=== PATIENT | male | born 1950 | race Caucasian/White ===

== ENCOUNTER → 2022-11-07 13:24 | Outpatient (BNVA) | payer OTHER, SELFPAY | PROVIDERS: Family Provider Internal Medicine; PCP Internal Medicine; Visit Provider Nurse Practitioner Family | DX: L85.3 Xerosis cutis (principal); D22.5 Melanocytic nevi of trunk; L81.4 Other melanin hyperpigmentation; L57.8 Other skin changes due to chronic exposure to nonionizing radiation; L82.1 Other seborrheic keratosis; L82.0 Inflamed seborrheic keratosis; L57.0 Actinic keratosis; B07.0 Plantar wart | CPT/HCPCS: 17000; 17003; 17110; 99213 ==

== ENCOUNTER → 2022-12-10 11:44 | Outpatient (BNVA) | payer OTHER, SELFPAY | PROVIDERS: Family Provider Internal Medicine; PCP Internal Medicine; Visit Provider Nurse Practitioner Family | DX: L85.3 Xerosis cutis (principal); D22.5 Melanocytic nevi of trunk; L81.4 Other melanin hyperpigmentation; L57.8 Other skin changes due to chronic exposure to nonionizing radiation; L82.1 Other seborrheic keratosis; B07.0 Plantar wart; Z71.89 Other specified counseling; L57.0 Actinic keratosis | CPT/HCPCS: 17000; 17003; 17110; 99213 ==

== ENCOUNTER → 2023-03-20 14:06 | Outpatient (BNVA) | payer OTHER, SELFPAY | PROVIDERS: Family Provider Internal Medicine; PCP Internal Medicine; Visit Provider Nurse Practitioner Family | DX: L57.0 Actinic keratosis (principal); L81.4 Other melanin hyperpigmentation; L57.8 Other skin changes due to chronic exposure to nonionizing radiation; D22.39 Melanocytic nevi of other parts of face; L82.1 Other seborrheic keratosis | CPT/HCPCS: 17000; 17003; 99213 ==

== ENCOUNTER → 2023-08-07 14:31 | Outpatient (BNVA) | payer OTHER, SELFPAY | PROVIDERS: Family Provider Internal Medicine; PCP Internal Medicine; Visit Provider Nurse Practitioner Family | DX: L57.0 Actinic keratosis (principal); L81.4 Other melanin hyperpigmentation; L57.8 Other skin changes due to chronic exposure to nonionizing radiation; D22.39 Melanocytic nevi of other parts of face; L82.1 Other seborrheic keratosis | CPT/HCPCS: 17000; 99213 ==

== ENCOUNTER 2023-08-25 06:00 | Outpatient (RCR) | payer OTHER, SELFPAY | END 2023-09-11 23:59 | disposition home or self-care (01) | LOC: APT 06:00 | PROVIDERS: Visit Provider Family Medicine | DX: M54.50 Low back pain, unspecified (principal) | CPT/HCPCS: 97112; 97161; 97530 ==

== ENCOUNTER 2023-09-12 06:00 | Outpatient (RCR) | payer OTHER, SELFPAY | END 2023-10-12 23:59 | disposition home or self-care (01) | LOC: APT 06:00 | PROVIDERS: Visit Provider Family Medicine | DX: M54.50 Low back pain, unspecified (principal) | CPT/HCPCS: 97110; 97112; 97116; 97530 ==

== ENCOUNTER 2023-11-20 13:27 | Outpatient (CLI) | payer OTHER, SELFPAY ==
--- NOTE | 2023-11-20 13:35 | MR_ITS ---
WS: [id number] MRI LUMBAR SPINE NONCONTRAST TECHNIQUE: Sagittal T1, T2 and STIR imaging. Axial T1 and T2 imaging. CLINICAL INFORMATION: COMPARISON: Low back pain FINDINGS: Mild lumbar curve. No acute compression. Moderate spondylitic changes. S1 is partially lumbarized wit h rudimentary disc base. Mild central canal stenosis cervical spine on the journeyman press operator imaging. L1-L2: Mild annular bulging. Mild RIGHT foraminal narrowing. Spinal canal is patent. Mild facet arthr opathy. L2-L3: Mild annular bulging. Mild central canal stenosis. Slight narrowing of the subarticular recess bilaterally. Moderate RIGHT foraminal narrowing with a RIGHT foraminal protrusion. Moderate facet ar thropathy. L3-L4: Mild annular bulging. Impingement LEFT subarticular recess. Moderate facet arthropathy. LEFT f oraminal protrusion slightly encroaches on the far exiting LEFT L3 nerve root. L4-L5: Mild disc bulge with osteophytic ridging. Moderate central canal stenosis. Moderate facet arth ropathy. Moderate LEFT foraminal narrowing. RIGHT foramen is patent. L5-S1: Mild disc bulge with mild central canal stenosis. Slight impingement of traversing S1 nerve ro ots. Moderate facet arthropathy. Mild bilateral foraminal narrowing. Visualized pelvic bony structures: Normal. Paravertebral soft tissues: Normal. MR/MR lumbar spine wo con* [id number] IMPRESSION: 1. Mild lumbar curve. No acute compression. S1 is partially lumbarized. Recomm end plain film correlation prior to surgical intervention. 2. Moderate central canal stenosis L4-5 due to disc bulging with facet arthrop athy and ligamentum flavum hypertrophy. Impingement subarticular recess bilater ally. 3. Mild central canal stenosis L2-3 and L5-S1. 4. RIGHT foraminal protrusion L2-3 with moderate RIGHT foraminal narrowing and impingement on the exiting RIGHT L2 nerve root. 5. Moderate LEFT L4-5 foraminal narrowing impinges the exiting L4 nerve root. 6. Mild bilateral L5-S1 foraminal narrowing.
--- NOTE | 2023-11-20 13:35 | XR_ITS ---
WS: [id number] DEXA (DUAL ENERGY X-RAY ABSORPTIOMETRY) Bone mineral density was performed using a Viewglass machine. HISTORY: COMPRESSION FX LUMBAR/? OSTEOPOROSIS COMPARISON: None available. Lumbar spine BMD (L1-L4): 1.443 T score: 1.7 Z score: 2.4 Total hip BMD: Left: 0.859 g/cm2. T score: -1.7 Z score: -0.8 Right: 0.850 g/cm2. T score: -1.7 Z score: -0.9 10 year probability of a major osteoporotic fracture is 16%. XR/XR DEXA axial skeleton* [id number] IMPRESSION: OSTEOPOROSIS.
== END 2023-11-20 13:28 | disposition home or self-care (01) ==
LOC: RAD 13:27
PROVIDERS: Visit Provider Family Medicine
DX: Z13.820 Encounter for screening for osteoporosis (principal); M48.061 Spinal stenosis, lumbar region without neurogenic claudication; M48.07 Spinal stenosis, lumbosacral region
CPT/HCPCS: 72148; 77080

== ENCOUNTER → 2024-08-03 11:38 | Outpatient (BNVA) | payer OTHER, SELFPAY | PROVIDERS: PCP Family Medicine; Referring Provider Family Medicine; Visit Provider Surgery | DX: Z12.11 Encounter for screening for malignant neoplasm of colon (principal) | CPT/HCPCS: 99204 ==

== ENCOUNTER 2024-08-05 07:45 | Day surgery (SDC) | payer OTHER, SELFPAY ==
[2024-08-05 08:02] VITALS: BMI 22.4
--- NOTE | 2024-08-05 08:06 | W.PM.OPSUD ---
Surgery/Procedure H&P Update DATE OF PROCEDURE: August 05, 2024 DATE H&P PERFORMED: 08/03/24 H&P UPDATE INFORMATION: I have reviewed H&P completed within last 30 days, I have examined patient prior to procedure, No changes to prior documentation and H&P is in [facility] on date indicated PLANNED PROCEDURE: Operation Date: 08/05/24 09:00 Proposed Procedures p Colonoscopy 29738, Z12.11(Not Applicable) - Alvaro Valenzuela MD
[2024-08-05 08:12] VITALS: BP 164/77; PULSE 61; RESP 18; TEMP 36.5; O2SAT 97
--- NOTE | 2024-08-05 08:12 | ANES.PREANE2 ---
Pre-Anesthetic Assessment Height/Weight: Height 1.83 m Weight 74.843 kg Preop Diagnosis: screening Operation Date: 08/05/24 09:00 Proposed Procedures p Colonoscopy [id number], Z12.11(Not Applicable) - Alvaro Valenzuela MD Familial anesthetic complications: none Last intake: Intake Last Liquid Date 08/04/24 Last Liquid Time 20:00 Last Solid Date 08/03/24 Last Solid Time 17:00 Social Alcohol (daily 4-5 beers per day) and Tobacco cannabis use. Airway Submandibular: within normal limits Cervical ROM: within normal limits Mallampati: Class II Dentition: other Comments: Comments: poor dentition on upper teeth chipped and discolored, lower denture plate in place. Pulmonary Chronic Obstructive Pulmonary Disease (denies) CV/HEM Hypertension None reported Hepatic None reported GI Gastroesophageal Reflux Disease Metabolic Hyperlipidemia [facility] None reported Neuropsych None reported Anesthetic Plan ASA status: 3 Anesthesia: MAC Medications/Allergies Home Medications Medication Instructions Recorded Confirmed Last Taken Type amlodipine 10 mg tablet 10 mg PO DAILY 05/20/22 08/04/24 08/04/24 06:00 History pantoprazole 40 mg tablet,delayed 40 mg PO DAILY 05/20/22 08/04/24 08/04/24 History release aspirin 81 mg tablet,delayed 81 mg PO DAILY 08/04/24 08/04/24 08/04/24 History release losartan 100 mg tablet 100 mg PO DAILY 08/04/24 08/04/24 08/04/24 History multivitamin 1 tab PO DAILY 08/04/24 08/04/24 08/04/24 History omega-3 fatty acids-vitamin E 1 cap PO DAILY 08/04/24 08/04/24 08/04/24 History 1,000 mg capsule red yeast rice 600 mg capsule 1,200 mg PO DAILY 08/04/24 08/04/24 08/04/24 History vitamin E (dl, acetate) 180 mg 180 mg PO DAILY 08/04/24 08/04/24 08/04/24 History (400 unit) capsule Allergies Allergy/AdvReac Type Severity Reaction Status Date / Time No Known Drug Allergies Allergy Unknown Unknown Verified 08/05/24 07:56 [facility] Anesthesia Medical History No pertinent past medical history Surgical History (Updated 08/03/24 @ 12:08 by CURRY Mao) No pertinent past surgical history Social History Smoking and tobacco/nicotine status: never used tobacco/nicotine Data Anesthesia Cardiac Studies: No Data to Display
[2024-08-05] MEDS: sodium chloride 0.9% 500 ML 15 ML IV (08:13)
[2024-08-05 09:11] VITALS: BP 103/66; PULSE 62; RESP 16; TEMP 36.1; O2SAT 94
[2024-08-05 09:31] VITALS: BP 134/71; PULSE 56; RESP 18; O2SAT 95
--- NOTE | 2024-08-05 09:45 | ANE.PACU2 ---
Inpatient post-anesthesia follow up: Airway intact: Yes Vital signs: Temperature 97 F Pulse Rate 56 Respiratory Rate 18 Blood Pressure 134/71 Pulse Oximetry 95 Oxygen Delivery Me thod Room Air Oxygen Flow Rate 4 Fraction of Inspir ed Oxygen Hydration adequate: Yes Nausea and vomiting: No Pain level: 1 Mental status: Baseline
== END 2024-08-05 09:45 | disposition home or self-care (01) ==
PROVIDERS: PCP Family Medicine; Visit Provider Surgery
PROC: 0DJD8ZZ Inspection of Lower Intestinal Tract, Via Natural or Artificial Opening Endoscopic (ICD-10-PCS; CPT 45378; principal; 2024-08-05 09:00)
DX: Z12.11 Encounter for screening for malignant neoplasm of colon (principal); D12.0 Benign neoplasm of cecum; D12.5 Benign neoplasm of sigmoid colon; D12.3 Benign neoplasm of transverse colon; D12.8 Benign neoplasm of rectum; J44.9 Chronic obstructive pulmonary disease, unspecified; E78.5 Hyperlipidemia, unspecified; K21.9 Gastro-esophageal reflux disease without esophagitis
CPT/HCPCS: 45382; 45385; 88305; J2704; J7040

== ENCOUNTER → 2024-08-17 09:54 | Outpatient (BNVA) | payer OTHER, SELFPAY | PROVIDERS: PCP Family Medicine; Visit Provider Surgery | DX: Z09 Encounter for follow-up examination after completed treatment for conditions other than malignant neoplasm (principal) | CPT/HCPCS: 99213 ==

== ENCOUNTER → 2024-09-06 10:58 | Outpatient (BNVA) | payer OTHER, SELFPAY | PROVIDERS: PCP Family Medicine; Visit Provider Orthopaedic Surgery | DX: S46.211A Strain of muscle, fascia and tendon of other parts of biceps, right arm, initial encounter (principal); X58.XXXA Exposure to other specified factors, initial encounter | CPT/HCPCS: 73030; 99204 ==

== ENCOUNTER 2024-09-14 14:23 | Outpatient (CLI) | payer OTHER, SELFPAY ==
--- NOTE | 2024-09-14 14:30 | MR_ITS ---
WS: [id number] MRI RIGHT SHOULDER NONCONTRAST TECHNIQUE: Sagittal T2, coronal T1, T2 and proton density imaging. Axial gradient PDE imaging. CLINICAL INFORMATION: Attention Bicep! COMPARISON: None. FINDINGS: Advanced arthritis AC joint. Osteopenia. Screw fixation in the distal clavicle. Advanced degenerative narrowing of the glenohumeral articulation. Osteopenia. Mild narrowing of the subacromial space with slight subacromial spurring. Impingement on the distal supraspinatus. Tiny insertional tear supraspinatus. Tendinopathy supraspinatus and infraspinatus. Supraspinatus and infraspinatus appear intact. Teres minor appears intact. Subscapularis appears intact. Biceps tendon is completely absent from the bicipital groove. No visualized remnant. Degenerative fraying of the glenoid labrum. Probable chronic tear of the posterior glenoid labrum. Subchondral cystic change involving the greater tuberosity. MR/MR shoulder RT wo con* [id number] IMPRESSION: 1. Advanced arthritis AC joint with prior screw fixation distal clavicle. 2. Mild narrowing of the subacromial space with tendinopathy supraspinatus and infraspinatus. Tiny insertional tear distal supraspinatus. 3. Rotator cuff is otherwise intact. 4. Biceps tendon completely absent from the bicipital groove. Suggestion of a tiny remnant intra-articular biceps tendon although not well visualized 5. Chronic irregularity of the glenoid labrum with suspected chronic posterior labral tear
== END 2024-09-14 14:24 | disposition home or self-care (01) ==
PROVIDERS: PCP Family Medicine; Visit Provider Orthopaedic Surgery
DX: S46.121A Laceration of muscle, fascia and tendon of long head of biceps, right arm, initial encounter (principal); M13.811 Other specified arthritis, right shoulder; Z98.890 Other specified postprocedural states; X58.XXXA Exposure to other specified factors, initial encounter; R93.6 Abnormal findings on diagnostic imaging of limbs; M85.80 Other specified disorders of bone density and structure, unspecified site; M77.8 Other enthesopathies, not elsewhere classified; M75.41 Impingement syndrome of right shoulder
CPT/HCPCS: 73221

== ENCOUNTER → 2024-09-23 10:45 | Outpatient (BNVA) | payer OTHER, SELFPAY | PROVIDERS: PCP Family Medicine; Visit Provider Orthopaedic Surgery | DX: Z01.818 Encounter for other preprocedural examination (principal); Z09 Encounter for follow-up examination after completed treatment for conditions other than malignant neoplasm; M25.511 Pain in right shoulder; G89.29 Other chronic pain; M19.011 Primary osteoarthritis, right shoulder; S46.211A Strain of muscle, fascia and tendon of other parts of biceps, right arm, initial encounter; X58.XXXA Exposure to other specified factors, initial encounter | CPT/HCPCS: 36415; 80053; 81001; 85025; 99213 ==

== ENCOUNTER 2024-11-09 06:22 | Outpatient (CLI) | payer OTHER, SELFPAY ==
--- NOTE | 2024-11-09 06:33 | USCV_ITS ---
Jairo Ortiz Age: 74 Gender: M : 1950 Exam Date: 11/09/2024 06:39 Ordering Phys: Nadya Polanco MD Technologist: BOBBI Exam Location: [facility] [place] Indication: Murmur BP: 154 / 84 HR: 50 Rhythm: Sinus Technical Quality: Adequate MEASUREMENTS (Male / Female) Normal Values 2D ECHO LV Diastolic Diameter PLAX 4.5 cm 4.2 - 5.9 / 3.9 - 5.3 cm IVS Diastolic Thickness 1.1 cm 0.6 - 1.0 / 0.6 - 0.9 cm IVS Systolic Thickness 1.3 cm LVPW Diastolic Thickness 1.2 cm 0.6 - 1.0 / 0.6 - 0.9 cm LVPW Systolic Thickness 1.7 cm LVOT Diameter 1.8 cm LV Ejection Fraction 2D Teich 57.9 % LV Ejection Fraction MOD 4C 51.1 % LV Ejection Fraction MOD 2C 66.7 % LV Ejection Fraction 2C AL 66.6 % LA Diameter 3.3 cm RA Systolic Volume 4C AL 27.1 ml RA Systolic Volume 4C MOD 27.1 ml LA Sys Volume AL 32.5 cm cubed LA Sys Volume Index AL 16.7 cm cubed/m squared Aorta at Sinotubular Diameter 2.5 cm IVC Diameter 2.0 cm M-MODE LA Ao Ratio MM 1.8 AV Cusp Separation MM 1.4 cm DOPPLER AV Peak Velocity 193.0 cm/s LVOT Peak Velocity 103.0 cm/s AV Area Cont Eq vti 1.6 cm squared AV Area Cont Eq pk 1.3 cm squared MV Peak Velocity 111.0 cm/s MV Area PHT 4.4 cm squared Mitral E to A Ratio 1.3 TR Peak Velocity 114.0 cm/s TR Peak Gradient 5.2 mmHg TV Peak E Velocity 72.0 cm/s PV Peak Velocity 111.0 cm/s FINDINGS Left Ventricle Left ventricle is normal in size. LV systolic function is normal with EF of 55-60%. No regional wall motion abnormalities are seen. Right Ventricle Grossly normal Right Atrium Normal in size Left Atrium Normal in size Mitral Valve Structurally normal mitral valve. Mild mitral regurgitation Aortic Valve Structurally normal aortic valve. No significant stenosis or regurgitation Tricuspid Valve Insufficient TR jet to calculate RVSP Pulmonic Valve Not well visualized Pericardium Normal Aorta Normal in size IVC Appears to be normal CONCLUSIONS LV systolic function is normal with EF of 55-60% Mild mitral regurgitation Fidel Ayon MD (Electronically Signed) Final Date: 16 Nov 2024 12:17 S
== END 2024-11-09 06:23 | disposition home or self-care (01) ==
PROVIDERS: PCP Family Medicine; Visit Provider Family Medicine
DX: R01.1 Cardiac murmur, unspecified (principal); I34.0 Nonrheumatic mitral (valve) insufficiency
CPT/HCPCS: 93306

== ENCOUNTER 2024-11-18 09:08 | Day surgery (SDC) | payer OTHER, SELFPAY ==
[2024-11-18] VITALS (10 sets, daily range): BP systolic 115–150; BP diastolic 62–99; PULSE 50–62; RESP 12–19; TEMP 36.1–36.6; O2SAT 92–97; BMI 22.4
--- NOTE | 2024-11-18 10:58 | ANES.PREANE2 ---
Pre-Anesthetic Assessment Height/Weight: Height 6 ft Weight 165 lb Temp Pulse Resp BP Pulse Ox O2 Del Method 98 F 62 17 147/82 96 Room Air 11/18/24 09:35 11/18/24 09:35 11/18/24 09:35 11/18/24 09:35 11/18/24 09:35 11/18/24 09:40 Preop Diagnosis: Tear of biceps muscle Operation Date: 11/18/24 10:55 Proposed Procedures p Shoulder Arthroscopy(Right) - Kevin Reynaga MD s Distal Bicep Repair/Reinsertion(Right) - Kevin Reynaga MD Was Beta Star taken within 24 hours: N/A Was Clonidine taken within 24 hours: N/A Last intake: Intake Last Liquid Date 11/17/24 Last Liquid Time 21:00 Last Solid Date 11/17/24 Last Solid Time 17:00 Social Alcohol and Tobacco Exam alert, oriented x 3 and regular rate & rhythm Airway Submandibular: within normal limits Cervical ROM: within normal limits Mallampati: Class III Comments: Comments: No bottom teeth, upper teeth are decaying. Denies any loose Anesthetic Plan ASA status: 3 Anesthesia: General and Regional (specify below) Other: No prior issues with anesthesia NPO since yesterday evening Patient is a chronic alcoholic, drinks beers daily. Half a pack a day History of COPD, still smoking GERD, on Protonix Hypertension on losartan and amlodipine Labs performed in September and acceptable for procedure Plan for general anesthesia with preop nerve block Medications/Allergies Home Medications ?Medication ?Instructions ?Recorded ?Confirmed ?Last Taken ?Type amlodipine 10 mg tablet 10 mg PO DAILY 05/20/22 11/17/24 11/18/24 History pantoprazole 40 mg tablet,delayed 40 mg PO DAILY 05/20/22 11/17/24 11/18/24 History release aspirin 81 mg tablet,delayed 81 mg PO DAILY 08/04/24 11/17/24 11/10/24 History release Held on 08/05/24. Instructions: Resume on 08/08/24. losartan 100 mg tablet 100 mg PO DAILY 08/04/24 11/17/24 11/17/24 History multivitamin 1 tab PO DAILY 08/04/24 11/17/24 11/10/24 History omega-3 fatty acids-vitamin E 1 cap PO DAILY 08/04/24 11/17/24 11/10/24 History 1,000 mg capsule red yeast rice 600 mg capsule 1,200 mg PO DAILY 08/04/24 11/17/24 11/10/24 History vitamin E (dl, acetate) 180 mg 180 mg PO DAILY 08/04/24 11/17/24 11/10/24 History (400 unit) capsule Allergies Allergy/AdvReac Type Severity Reaction Status Date / Time No Known Drug Allergies Allergy Unknown Unknown Verified 11/17/24 11:18 [facility] Anesthesia Medical History No pertinent past medical history Surgical History No pertinent past surgical history Social History Smoking and tobacco/nicotine status: current every day tobacco/nicotine user (1 PPD) Data Anesthesia Cardiac Studies: Echocardiogram Ultrasound 11/09/24
--- NOTE | 2024-11-18 11:11 | ANES.PROC ---
Anesthesia Procedures Procedure/Date: 11/18/24 Nerve Block ^: Nerve Block 1: Main Anesthesia: other (100 mcg of fentanyl) Time Out Performed: Yes Consent: requested by attending/covering physician and from patient Nerve block location: interscalene Anesthesia monitors applied: pulse oximetry, EKG, BP cuff and oxygen Nerve block position: supine Anesthetic Used: ropivicaine 0.5% Amount of anesthesia used (mL): 30 Ultrasound used to: recognize landmarks Nerve Stimulator Used?: Yes Interscalene/Femoral BLK: other needle (pjunk 4inch) Injection: neg aspiration of heme Patient Tolerated Procedure: well Complications: none Additional Comments: Decadron 4 mg added to block
--- NOTE | 2024-11-18 11:12 | PC.NURSE ---
1100: right shoulder block performed by carmen. patient placed on monitor and 2lpm via n/c. using ultrasound guidance 30 ml of 0.5% ropivicaine. Patient tolerated well
--- NOTE | 2024-11-18 11:29 | W.PM.OPSUD ---
Surgery/Procedure H&P Update DATE OF PROCEDURE: November 18, 2024 DATE H&P PERFORMED: 09/23/24 H&P UPDATE INFORMATION: I have reviewed H&P completed within last 30 days, I have examined patient prior to procedure, No changes to prior documentation and Risks and benefits of the procedure reviewed PREOP DIAGNOSIS: Tear of biceps muscle PLANNED PROCEDURE: Operation Date: 11/18/24 10:55 Proposed Procedures p Shoulder Arthroscopy(Right) - Kevin Reynaga MD s Distal Bicep Repair/Reinsertion(Right) - Kevin Reynaga MD
[2024-11-18] MEDS: ceFAZolin 2,000 mg SDV 2000 MG IVP (11:56)
--- NOTE | 2024-11-18 14:07 | PM.OP ---
Operative Report Date of procedure: November 18, 2024 Surgeon: Kevin Reynaga MD Procedure: Preoperative diagnosis: Internal derangement of the right shoulder with ruptured proximal right biceps tendon Postop diagnosis: Same, including degenerative tearing of superior and anterior labrum. Biceps stump present within the joint. Procedure: Diagnostic right shoulder arthroscopy with debridement. Open exploration of the bicipital groove and dissection of stump of the proximal biceps tendon. Anchoring of proximal biceps tendon to the humerus via suture anchor. Surgeon: Kevin Reynaga MD Diesel Pile Hammer Operator: JASE Gonzales's assistance was necessary throughout this procedure for positioning of the patient, manipulation/positioning of the arm. She is also necessary for wound closure, dressings, placement of the splint and transfer the patient to the PACU Anesthesia: General With preoperative scalene block EBL: Minimal Indications: Jairo is a 74-year-old white male was seen back in September of this year after injuring his arm. He felt that he just recently injured his however does have some past history of that may have led to some of this damage to his shoulder arm. He was presenting with a biceps muscle that had bunched up distally in his upper arm indicating a biceps tendon tear proximally. Subsequent MRI demonstrated stump of the biceps tendon in the glenohumeral joint line however the bicipital groove down the arm was empty. It was also identified on the MRI that he had quite a bit of labral tearing or fraying as well as some early osteoarthritic changes in the shoulder. At this time I had a lengthy discussion with him about the possibility of doing an arthroscopic evaluation of the shoulder including this up. Anchored the biceps tendon if I could identify it. Also by doing an open procedure to try and anchor this back down. I did not guarantee him that I would be able to achieve this due to the fact that appears that this is scarred down and may be difficult. He would like me to do my best to try and repair his arm so it is more functional for him. I explained all risk, benefits, and treatment alternatives and he wishes to proceed with surgical intervention at this time. Procedure: After obtaining consent patient had a scalene block administered in preop holding area. Patient then taken the operating room placed in the upper table supine position and general anesthetic administered. Once good as he was achieved patient placed into the beachchair position and padded appropriately. Right upper extremity and shoulder were prepped and draped usual fashion. After surgical timeout standard posterior portal was made with the #11 blade. McAninch placed with a posterior portal into the glenohumeral joint line. Anterior working portal was also placed. Once within the shoulder is very evident gross degenerative changes of all the labrum anteriorly and superiorly. All of this is debrided down to stable cartilaginous base with mechanical shaver throughout the shoulder. There was some mild grade 2 nearly grade III chondromalacia of the glenoid and this is debrided with mechanical shaver also. Biceps stump was identified and this was debrided down to further as to not to have it impinged. No evidence of biceps tendon was evident at the hiatus. At this point arthroscopy was discontinued and a anterior approach was made to the shoulder with. Sharp dissection taken on down to subcutaneous tissue electrocautery used for hemostasis. And blunt and sharp fashion with Metzenbaum scissors the interval between the deltoid and the pectoral micro identified. This is then held apart with tissue spreaders to identify the humerus underneath. By palpation bicipital groove was identified. There is no evidence of biceps tendon in it. Muscle could be found by palpation through the skin and what appears to be tendon therefore a secondary incision was made over this area in the mid humerus region directly over the biceps musculature. Sharp dissection taken on down to subcutaneous tissue like copious hemostasis blunt and sharp dissection with Metzenbaum scissors found the stump of the of the biceps. This is slowly debrided and dissected away and no lengthy piece of tendon could be identified. After attempts to try and evaluate this further is felt the patient would most benefit from just having the proximal biceps anchor to the humerus so he had a pulled point at least at this time. Therefore a 2.0 juggernaut anchor was placed along the course of the bicipital groove lying proximal to the proximal biceps tendon. This was double armed. Subsequently was pulled proximally and sutured to the humeral shaft in this area. At this point all wounds were washed with sterile irrigation. They were then closed with a running 3-0 Prolene sutures after deep approximation of of the subcutaneous tissue with 0 Vicryl interrupted sutures. Sterile gauze dressing adhesive tape. Arm was placed in. Splint to keep his elbow at 90 degrees. Robert wrap for compression. Patient was then awakened transferred to cover room stable condition
[2024-11-18] MEDS: HYDROcodone-acetaminophen 7.5-325 mg Tablet 1 TAB PO (15:19)
--- NOTE | 2024-11-18 15:30 | ANE.PACU2 ---
Inpatient post-anesthesia follow up: Airway intact: Yes Vital signs: Temperature 97 F Pulse Rate 54 Respiratory Rate 18 Blood Pressure 146/96 Pulse Oximetry 93 Oxygen Delivery Me thod Room Air Oxygen Flow Rate 6 Fraction of Inspir ed Oxygen Hydration adequate: Yes Nausea and vomiting: No Pain level: 1 Mental status: Baseline
[2024-11-18] MEDS: sodium chloride 0.9% 1,000 ML 30 ML IV (15:35)
== END 2024-11-18 15:30 | disposition home or self-care (01) ==
PROVIDERS: PCP Family Medicine; Visit Provider Orthopaedic Surgery
PROC: (CPT 29805; principal; 2024-11-18 10:55)
PROC: (CPT 24341; 2024-11-18 10:55)
DX: S46.211A Strain of muscle, fascia and tendon of other parts of biceps, right arm, initial encounter (principal); S43.431A Superior glenoid labrum lesion of right shoulder, initial encounter; X58.XXXA Exposure to other specified factors, initial encounter; M94.211 Chondromalacia, right shoulder; J44.9 Chronic obstructive pulmonary disease, unspecified; K21.9 Gastro-esophageal reflux disease without esophagitis; Z79.899 Other long term (current) drug therapy; I10 Essential (primary) hypertension; Z79.82 Long term (current) use of aspirin; F17.210 Nicotine dependence, cigarettes, uncomplicated; F10.20 Alcohol dependence, uncomplicated
CPT/HCPCS: 23430; 29822; C1713; J0690; J2371; J2704; J3010; J3490; J7030; J9999

== ENCOUNTER → 2024-11-25 11:49 | Outpatient (BNVA) | payer OTHER, SELFPAY | PROVIDERS: PCP Family Medicine; Visit Provider Orthopaedic Surgery | DX: M25.511 Pain in right shoulder (principal); G89.29 Other chronic pain; S46.211D Strain of muscle, fascia and tendon of other parts of biceps, right arm, subsequent encounter; X58.XXXD Exposure to other specified factors, subsequent encounter | CPT/HCPCS: 99024 ==

== ENCOUNTER → 2024-12-09 14:04 | Outpatient (BNVA) | payer OTHER, SELFPAY | PROVIDERS: PCP Family Medicine; Visit Provider Orthopaedic Surgery | DX: S46.211D Strain of muscle, fascia and tendon of other parts of biceps, right arm, subsequent encounter (principal); X58.XXXD Exposure to other specified factors, subsequent encounter | CPT/HCPCS: 99213 ==

== ENCOUNTER 2024-12-12 05:00 | Outpatient (RCR) | payer OTHER, SELFPAY | END 2025-01-10 23:59 | disposition home or self-care (01) | LOC: APT 05:00 | PROVIDERS: Visit Provider Orthopaedic Surgery | DX: Z47.89 Encounter for other orthopedic aftercare (principal) | CPT/HCPCS: 97112; 97140; 97161; 97530 ==

== ENCOUNTER 2025-01-11 05:00 | Outpatient (RCR) | payer OTHER, SELFPAY | END 2025-02-10 23:59 | disposition home or self-care (01) | LOC: APT 05:00 | PROVIDERS: PCP Family Medicine; Visit Provider Orthopaedic Surgery | DX: Z98.890 Other specified postprocedural states (principal); M25.511 Pain in right shoulder; G89.29 Other chronic pain; S46.211A Strain of muscle, fascia and tendon of other parts of biceps, right arm, initial encounter; X58.XXXA Exposure to other specified factors, initial encounter; R20.0 Anesthesia of skin | CPT/HCPCS: 97110; 97112; 97140; 97530; 99024 ==

== ENCOUNTER 2025-02-11 05:00 | Outpatient (RCR) | payer OTHER, SELFPAY | END 2025-03-13 23:59 | disposition home or self-care (01) | LOC: APT 05:00 | PROVIDERS: PCP Family Medicine; Visit Provider Orthopaedic Surgery | DX: M25.511 Pain in right shoulder (principal); G89.29 Other chronic pain; R20.0 Anesthesia of skin; S46.211A Strain of muscle, fascia and tendon of other parts of biceps, right arm, initial encounter; X58.XXXA Exposure to other specified factors, initial encounter | CPT/HCPCS: 97110; 97112; 97140; 97530 ==

== ENCOUNTER → 2025-03-10 14:36 | Outpatient (BNVA) | payer OTHER, SELFPAY | PROVIDERS: PCP Family Medicine; Referring Provider Family Medicine; Visit Provider Specialist | DX: R20.0 Anesthesia of skin (principal); M25.511 Pain in right shoulder; G89.29 Other chronic pain | CPT/HCPCS: 95909 ==

== ENCOUNTER 2025-03-14 05:00 | Outpatient (RCR) | payer OTHER, SELFPAY | END 2025-04-12 23:59 | disposition home or self-care (01) | LOC: APT 05:00 | PROVIDERS: PCP Family Medicine; Visit Provider Orthopaedic Surgery | DX: M25.512 Pain in left shoulder (principal); G89.29 Other chronic pain | CPT/HCPCS: 97110; 97140; 97530 ==

== ENCOUNTER → 2025-03-17 11:07 | Outpatient (BNVA) | payer OTHER, SELFPAY | PROVIDERS: PCP Family Medicine; Visit Provider Nurse Practitioner Family | DX: L81.4 Other melanin hyperpigmentation (principal) | CPT/HCPCS: 11102; 17004; 99213 ==

== ENCOUNTER → 2025-03-22 09:53 | Outpatient (BNVA) | payer OTHER, SELFPAY | PROVIDERS: PCP Family Medicine; Visit Provider Orthopaedic Surgery | DX: Z09 Encounter for follow-up examination after completed treatment for conditions other than malignant neoplasm (principal) | CPT/HCPCS: 99213 ==

== ENCOUNTER 2025-04-27 10:31 | Outpatient (RCR) | payer OTHER, SELFPAY | END 2025-05-13 23:59 | disposition home or self-care (01) | LOC: APT 10:31 | PROVIDERS: PCP Family Medicine; Visit Provider Orthopaedic Surgery | DX: M25.511 Pain in right shoulder (principal); G89.29 Other chronic pain; S46.211A Strain of muscle, fascia and tendon of other parts of biceps, right arm, initial encounter; R20.0 Anesthesia of skin; X58.XXXA Exposure to other specified factors, initial encounter | CPT/HCPCS: 97110; 97530 ==

== ENCOUNTER 2025-07-12 13:22 | Outpatient (CLI) | payer OTHER, SELFPAY ==
--- NOTE | 2025-07-12 13:47 | US_ITS ---
WS: [id number] Complete ABDOMINAL ULTRASOUND HISTORY: atrophy of the pancreas COMPARISON: None available. Liver: 12.6 cm in length. Normal size liver and echogenicity. No bile duct dilatation or mass. Portal Vein: Normal hepatopetal flow with monophasic waveform. Gallbladder: Nonshadowing artifact in the gallbladder. Suspect the echoes within the gallbladder probably due to the adjacent duodenum. CBD: 0.2 cm Pancreas: Not visualized. Right kidney: 9.4 cm x 6.2 x 6.7 cm. Cortex:1.1 cm. Normal size and echogenicity. No hydronephrosis or mass. Left kidney: 10.0 cm x 4.3 cm x 6.4 cm. Cortex: 1.3 cm. Normal size and echogenicity. No hydronephrosis or mass. Spleen: 8.2 cm. Normal size and echogenicity. Aorta and IVC: Unremarkable abdominal aorta and IVC. US/US abdomen complete* [id number] Impression: 1. There are a few low-level echoes within the gallbladder which do not shadow . Favor this is probably artifact. Consider short-term follow-up gallbladder ul trasound to reevaluate for possible stones. 2. No renal obstruction. 3. Poorly visualized pancreas. 4. Technically difficult abdominal ultrasound.
== END 2025-07-12 13:23 | disposition home or self-care (01) ==
LOC: RAD 13:25
PROVIDERS: PCP Family Medicine; Visit Provider Family Medicine
DX: K86.89 Other specified diseases of pancreas (principal)
CPT/HCPCS: 76700